=== PATIENT | female | born 2000 ===

== ENCOUNTER 2020-04-04 15:03 | Outpatient (CLI) | payer OTHER ==
[~2020-04-04 15:03] MED LIST: FLONASE16 GM NASAL; MUCINEX D ER 61 EACH PO; ZITHROMAX500 MG PO
== END 2020-04-04 15:07 | disposition home or self-care (01) ==
LOC: LAB 15:03
PROVIDERS: ATTEND General Practice
DX: B96.0 Mycoplasma pneumoniae [M. pneumoniae] as the cause of diseases classified elsewhere (principal); J11.1 Influenza due to unidentified influenza virus with other respiratory manifestations; R51 Headache; R05 Cough; R50.9 Fever, unspecified; Z03.818 Encounter for observation for suspected exposure to other biological agents ruled out

== ENCOUNTER 2021-08-08 08:00 | Outpatient (CLI) | payer OTHER | END 2021-08-08 08:30 | disposition home or self-care (01) | LOC: PPH VACUNA 08:00 | PROVIDERS: ATTEND Emergency Medicine Pediatric Emergency Medicine | DX: Z23 Encounter for immunization (principal) ==

== ENCOUNTER 2023-08-06 06:30 | Outpatient (CLI) | payer OTHER ==
[2023-08-06 07:27] LABS: HEMOGLOBIN 12.6 g/dL (12.0-15.00); MEAN CELL VOLUME 81.2 fL (80.00-100.00); MEAN CORPUSCULAR HEMOGLOBIN 26.9 pg (27.00-32.0); MEAN CORPUSCULAR HGB CONC 33.1 g/dl (32.0-36.0); PLATELET COUNT 407 K/uL (150-450); RED BLOOD COUNT 4.68 M/uL (4.00-6.00); RED CELL DISTRIBUTION WIDTH 13.7 % (11.5-14.5)
[2023-08-06 07:56] LABS: ALBUMIN 3.7 gm/dL (3.4-5.0); BILIRUBIN TOTAL 0.37 mg/dL (0.3-1.2); BILIRUBIN,CONJUGATED 0.13 mg/dL (0.0-0.2); BILIRUBIN,UNCONJUGATED 0.24 mg/dL (0.0-0.6); CALCIUM 8.9 mg/dL (8.5-10.1); CHOL HDL RATIO 3.1 (0-5.0); CREATININE SERUM 0.72 mg/dL (0.55-1.02); GFR 100.38; GLOBULINA 3.7 G/DL (2.4-3.5); POTASSIUM 3.95 mEq/L (3.5-5.1); T4 TOTAL 9.81 UG/DL (4.8-13.9); TOTAL PROTEIN 7.4 gm/dL (6.4-8.2); TSH 1.29 uIU/mL (0.358-3.74)
[2023-08-06 07:57] LABS: URINE APPEARANCE Clear; URINE BILIRRUBIN Negative (NEGATIVE); URINE BLOOD Trace; URINE COLOR Yellow; URINE GLUCOSE Negative (NEGATIVE); URINE LEUKOCYTE Negative; URINE NITRATE Negative; URINE PROTEIN Negative (NEGATIVE); URINE UROBILINOGEN 0.2 E.U./dl
[2023-08-06 08:02] LABS: URINE EPITHELIAL CELLS 42.9 uL (0.0-38.8); URINE RBC 10.2 uL (0.0-20.8); URINE WBC 109.9 uL (0.0-23.2)
[2023-08-06 08:18] LABS: URINE BACTERIA > 9821.5 uL (0.0-1933)
[2023-08-06 08:38] LABS: URINE YEAST MODERATE /hpf
[2023-08-06 09:44] LABS: T3 TOTAL 1.47 ng/ml (0.846-2.02); VITAMIN D3 25 HYDROXY 23.18 ng/ml (30-120)
== END 2023-08-06 06:35 | disposition home or self-care (01) ==
LOC: LAB 06:30
PROVIDERS: ATTEND General Practice
DX: Z00.00 Encounter for general adult medical examination without abnormal findings (principal); E78.5 Hyperlipidemia, unspecified; E55.9 Vitamin D deficiency, unspecified; N39.0 Urinary tract infection, site not specified; R42 Dizziness and giddiness